=== PATIENT | male | born 1940 ===

== ENCOUNTER 2018-05-24 12:07 | Emergency (ER) | payer MEDICARE, MEDICAID ==
[2018-05-24 12:18] VITALS: BP 150/77; PULSE 86; RESP 20; TEMP 98; O2SAT 93
--- NOTE | 2018-05-24 14:42 | C.PDOC ---
History Of Present Illness 78 year old male with a history of asthma (on home O2 and nebulizer) and prostate cancer presents to the emergency department with complaints of mild left-sided lower back pain which radiates down his left leg for the last three days. Patient denies bowel and bladder dysfunction, numbness, tingling, and leg swelling. Patient was evaluated by another PMD yesterday and was prescribed Tylenol #3, which did not relieve his symptoms. Patient states that he is not taking NSAIDs, as he was told to stop using them due to a planned surgery at the end of the month. Time Seen by Provider: 05/24/18 12:33 Chief Complaint (Nursing): Lower Extremity Problem/Injury History Per: Patient History/Exam Limitations: no limitations Onset/Duration Of Symptoms: Days (3) Current Symptoms Are (Timing): Still Present Past Medical History Reviewed: Historical Data, Nursing Documentation, Vital Signs Vital Signs: Last Vital Signs Temp 98 F 05/24/18 12:13 Pulse 86 05/24/18 12:13 Resp 20 05/24/18 12:13 BP 150/77 05/24/18 12:13 Pulse Ox 93 L 05/24/18 12:13 - Medical History PMH: Asthma, Pneumonia Surgical History: No Surg Hx Family History: States: No Known Family Hx - Social History Hx Alcohol Use: No Hx Substance Use: No Review Of Systems Constitutional: Negative for: Fever, Chills Genitourinary: Negative for: Dysuria, Frequency, Incontinence Musculoskeletal: Positive for: Back Pain (left), Leg Pain (left) Neurological: Negative for: Weakness, Numbness Physical Exam - Physical Exam Appears: Non-toxic, No Acute Distress, Other (elderly male) Skin: Warm, Dry Head: Atraumatic, Normacephalic Eye(s): bilateral: Normal Inspection, PERRL, EOMI Neck: Normal, Supple Chest: Symmetrical, No Tenderness Cardiovascular: Rhythm Regular, No Murmur Respiratory: Normal Breath Sounds, No Rales, No Rhonchi, No Wheezing, Other (speaks in full sentences) Gastrointestinal/Abdominal: Soft, No Tenderness, No Guarding, No Rebound Back: No Vertebral Tenderness, No Paraspinal Tenderness Extremity: Normal ROM, Tenderness (Lateral left thigh tender to palpation), No Pedal Edema, Calf Tenderness (posterior left calf), No Other (sciatic nerve tenderness) Pulses: Left Dorsalis Pedis: Normal, Right Dorsalis Pedis: Normal Neurological/Psych: Oriented x3, Normal Speech, Normal Cognition, Normal Motor, Normal Sensation ED Course And Treatment O2 Sat by Pulse Oximetry: 93 (RA) Pulse Ox Interpretation: Abnormal Medical Decision Making Medical Decision Making: Plan: pt with left leg pain that radiates down leg; pt has hx of prostate ca; sounds like sciata but concern for dvt , get venous doppler. Venous Duplex Scan Lower Extremities Assessment: Likely sciatica vs dvt 1522 pt with neg sonogram for dvt, will tx for sciatica. Disposition Counseled Patient/Family Regarding: Studies Performed, Diagnosis, Need For Followup, Rx Given - Disposition Referrals: Renetta Hanna MD [Medical Doctor] - Disposition: HOME/ ROUTINE Disposition Time: 15:38 Condition: GOOD Additional Instructions: Shyam de mia Tylneol # 3. Dieterich 2 Tylenol regulares y 5 mg de ciclobenzaprina (relajante muscular) por va oral cada 8 horas. El relajante muscular puede hacer que tenga sueo, as que tenga cuidado al caminar. Hong un seguimiento con de león mdico el ; le recomendamos que lo remitan a terapia fsica.\ Stop taking Tylneol #3 . Take 2 regular Tylenol and 5 mg of cyclobenzaprine (muscle relaxant) by mouth every 8 hours. The muscle relaxant may make you sleepy so be careful when walking around. Follow up with your doctor on Sunday- recommend you are referred to physcial therapy. MEDICINE SENT TO [facility] Prescriptions: Acetaminophen [Tylenol 325mg tab] 650 mg PO Q8 #30 tab Cyclobenzaprine HCl 5 mg PO TID #9 tablet Instructions: Sciatica (DC), Sciatica Exercises Forms: Gen Discharge Inst Russian, [employer] (Russian) Print Language: SWEDISH - Clinical Impression Clinical Impression: Sciatica of left side - PA / COMPUTER CONSULTANT / Resident Statement MD/DO has reviewed & agrees with the documentation as recorded. - Scribe Statement The provider has reviewed the documentation as recorded by the Scribe (Danny Yadav) All medical record entries made by the Scribe were at my direction and personally dictated by me. I have reviewed the chart and agree that the record accurately reflects my personal performance of the history, physical exam, medical decision making, and the department course for this patient. I have also personally directed, reviewed, and agree with the discharge instructions and disposition.
--- NOTE | 2018-05-27 13:33 | VASCLAB ---
Date of service: 05/24/2018 PROCEDURE: Left Lower Extremity Venous Duplex Exam. HISTORY: left leg pain, hx prostate ca PRIORS: None. TECHNIQUE: Left common femoral, femoral, popliteal and posterior tibial, peroneal and great saphenous veins were evaluated. Flow was assessed with color Doppler, compressibility, assessment of phasic flow and augmentation response. Report prepared by JEFRY Watson, RVT FINDINGS: LEFT: 1. Common Femoral Vein: 1.1. Compressibility - Fully compressible: Thrombus - None : Flow - Phasic: Augmentation -Normal: Reflux - None. 2. Femoral Vein: 2.1. Compressibility - Fully compressible: Thrombus - None: Flow - Phasic: Augmentation -Normal: Reflux - None. 3. Popliteal Vein: 3.1. Compressibility - Fully compressible: Thrombus - None: Flow - Phasic: Augmentation -Normal: Reflux - None. 4. Posterior Tibial Vein: 4.1. Compressibility - Fully compressible: Thrombus - None: Flow - Phasic: Augmentation -Normal: Reflux - None. 5. Peroneal Vein: 5.1. Compressibility - Fully compressible: Thrombus - None: Flow - Phasic: Augmentation -Normal: Reflux - None. 6. Great Saphenous Vein: 6.1. Compressibility - Fully compressible: Thrombus - None: Flow - Phasic: Augmentation - Normal: Reflux - None. OTHER FINDINGS: IMPRESSION: No evidence of deep or superficial vein thrombosis of the left lower extremity with excellent venous flow. Normal valve function noted of the left side. Normal venous flow noted in the right common femoral vein.
== END 2018-05-24 15:48 | disposition home or self-care (01) ==
LOC: C.ER 12:07
DX: M54.42 Lumbago with sciatica, left side (principal); J45.909 Unspecified asthma, uncomplicated; Z99.81 Dependence on supplemental oxygen; Z85.46 Personal history of malignant neoplasm of prostate